=== PATIENT | female | born 1970 | race African-American/Black ===

== ENCOUNTER 2023-04-13 13:51 | Emergency (ER) | payer OTHER ==
[~2023-04-13] VITALS: Ht 157.5 cm; Wt 83.0 kg
[2023-04-13] MEDS: CLINDAMYCIN 600MG IV 50 ML IV ONE (18:30)
[2023-04-13] MEDS: methylPREDNISolone SOD SUCC 125 MG/2 ML VL IV ONE (18:51)
[2023-04-13] MEDS: cefTRIAXone 1GM/50ML D5W 50 ML IV ONE (18:53)
[2023-04-13 19:04] LABS: Basophils # (auto) 0.1 10 ^3/uL (0-0.2); Eosinophils # (auto) 0.2 10 ^3/uL (0-0.8); Eosinophils % (auto) 1.8 % (0.0-7.0); Hematocrit 42.9 % (36.0-46.0); Hemoglobin 14.3 g/dL (12.2-16.2); Lymphocytes # (auto) 4.5 10 ^3/uL (0.4-5.4); Lymphocytes % (auto) 46.7 % (10.0-50.0); Mean Corpuscular Hemoglobin 29.8 pg (28.0-32.0); Mean Corpuscular Hgb Conc. 33.4 g/dL (32.0-36.0); Mean Corpuscular Volume 89.1 fL (80.0-100.0); Monocytes # (auto) 0.6 10 ^3/uL (0-1.3); Monocytes % (auto) 5.8 % (0.0-12.0); Neutrophils # (auto) 4.3 10 ^3/uL (1.6-8.6); Neutrophils % (auto) 44.7 % (37.0-80.0); Nucleated Red Blood Cells % 0.1 %; Red Blood Cells 4.81 10^6/uL (4.0-5.20); Red Cell Distribution Width 14.8 % (11.8-14.3); White Blood Cell 9.7 10^3/uL (4.4-10.8)
[2023-04-13 19:10] LABS: Chloride 109 mmol/L (98-107); Potassium 3.9 mmol/L (3.5-5.1); Sodium 139 mmol/L (136-145)
[2023-04-13 19:11] LABS: Anion Gap 5 (5-15); Carbon Dioxide 25 mmol/L (20-30)
[2023-04-13 19:12] LABS: Calcium 9.9 mg/dL (8.7-10.4)
[2023-04-13 19:16] LABS: BUN/Creatinine Ratio 15.6 (10.0-20.0); Blood Urea Nitrogen 10 mg/dL (9-23); Glucose 91 mg/dL (74-106)
[2023-04-13 21:00] VITALS: BP 124/76; PULSE 78; RESP 18; TEMP 97.8; O2SAT 98
[2023-04-13] MEDS ORDERED: PRED20TA2 PO (21:04)
[2023-04-13] MEDS ORDERED: AMOX875T4 PO (21:04)
[2023-04-13] MEDS ORDERED: ACET500T58 PO (21:04)
[2023-04-13] MEDS: IOHEXOL 350 MG/ML 100ML IJ ONE (21:08)
== END 2023-04-13 21:16 | disposition home or self-care (01) ==
LOC: ER 13:51
DX: K11.20 Sialoadenitis, unspecified (principal); Z90.710 Acquired absence of both cervix and uterus; Z88.2 Allergy status to sulfonamides; Z79.899 Other long term (current) drug therapy
CPT/HCPCS: 36415; 70450; 70487; 80048; 83605; 85025; 87040; 96365; 96366; 96375; 99285; J0696; J2930; Q9967